=== PATIENT | female | born 1965 | race Caucasian/White ===

== ENCOUNTER 2017-01-16 11:47 | Emergency (ER) | payer OTHER ==
[2017-01-16] MEDS ORDERED: AMOXICILLIN/POTASSIUM CLAV 875MG/125MG TABLET PO ONE (12:01)
--- NOTE | 2017-01-16 12:08 | Emergency Department Record ---
History of Present Illness - General Chief Complaint: Animal Bite Stated Complaint: DOG BITE Time Seen by Provider: 01/16/17 12:01 Source: Patient, Family Mode of Arrival: Ambulatory Limitations: No limitations - History of Present Illness Initial Comments: 51 yo male presents with dog bite to her right elbow. Her [place] sharma was fighting with another dog. She was the dogs when her dog bit her arm. Her dog is healthy, up to date on shots. She has small lacerations to the elbow. No loss of range of motion, no weakness, numbness or tingling. Her tetanus is up to date. Complaint: Animal bite Onset/Timin -: Minutes(s) Right: Elbow Animal: Dog Description: Household pet Mechanism: Bite Severity scale (1-10): 8 Context: Animals fighting Associated Symptoms: Bleeding Treatments Prior to Arrival: Wound dressing(s) - Related Data Patient Tetanus UTD (within 5 yrs): Yes Previous Rx's Medication Instructions Recorded Amoxicillin/Potassium Clav 1 tab PO BID #14 tab 01/16/17 [Augmentin 875-125 Tablet] Allergies Allergy/AdvReac Type Severity Reaction Status Date / Time hydrocortisone Allergy HIVES Verified 01/16/17 11:55 methylisothiazolinone Allergy HIVES Verified 01/16/17 11:55 Sulfa (Sulfonamide Allergy RASH Verified 01/16/17 11:55 Antibiotics) Travel Screening - Travel/Exposure Within Last 30 Days Have you traveled within the last 30 days?: No - Travel/Exposure Within Last Year Have you traveled outside the [place] in the last year?: No - Additonal Travel Details Have you been exposed to anyone with a communicable illness?: No - Travel Symptoms Symptom Screening: None Review of Systems Constitutional: Denies: Chills, Fever, Malaise, Weakness Eyes: Denies: Eye discharge ENT: Denies: Congestion, Throat pain Respiratory: Denies: Cough Cardiovascular: Denies: Chest pain, Palpitations, Syncope Endocrine: Denies: Fatigue Gastrointestinal: Denies: Abdominal pain, Diarrhea, Nausea, Vomiting Genitourinary: Denies: Dysuria, Urgency Musculoskeletal: Reports: Myalgia. Denies: Arthralgia, Back pain, Joint swelling, Neck pain Skin: Reports: Other. Denies: Change in color Neurological: Denies: Headache Psychiatric: Denies: Anxiety Hematological/Lymphatic: Denies: Blood Clots, Easy bleeding, Easy bruising, Swollen glands Past Medical History - SOCIAL HISTORY Smoking Status: Never smoker Alcohol Use: None Drug Use: None - RESPIRATORY Hx Respiratory Disorders: No - CARDIOVASCULAR Hx Cardio Disorders: No - NEURO Hx Neuro Disorders: No - GI Hx GI Disorders: No - Hx Genitourinary Disorders: No - ENDOCRINE Hx Endocrine Disorders: No - MUSCULOSKELETAL Hx Musculoskeletal Disorders: No - PSYCH Hx Psych Problems: No - HEMATOLOGY/ONCOLOGY Hx Hematology/Oncology Disorders: No Family Medical History Any Significant Family History?: No Physical Exam - General General Appearance: Alert, Oriented x3, Cooperative, No acute distress Limitations: No limitations - Head Head exam: Normal inspection - Eye Eye exam: Normal appearance, PERRL - ENT ENT exam: Normal exam Ear exam: Normal external inspection Nasal Exam: Normal inspection Mouth exam: Normal external inspection - Neck Neck exam: Normal inspection - Respiratory Respiratory exam: Normal lung sounds bilaterally. negative: Respiratory distress - Cardiovascular Cardiovascular Exam: Regular rate, Normal rhythm, Normal heart sounds Peripheral Pulses: 2+: Radial (R) - Rectal Rectal exam: Deferred - exam: Deferred - Extremities Extremities exam: Full ROM, Normal capillary refill, Tenderness. negative: Normal inspection, Joint swelling, Pedal edema Image of Full Body: 1 - 1cm laceration distal to the elbow, superficial abrasions, mild soft tissue swelling 2 - 2 superficial abrasions no lacerations, mild soft tissue swelling - Back Back exam: Reports: Normal inspection - Neurological Neurological exam: Alert, Normal gait, Oriented X3, Reflexes normal. negative: Motor sensory deficit - Psychiatric Psychiatric exam: Normal affect, Normal mood - Skin Skin exam: Abrasion Type of lesion: Laceration Course - Reevaluation(s) Reevaluation #1: Mild soft tissue swelling, abrasions, one 1cm laceration full range of motion without pain or limitation tetanus is up to date Augmentin provided in the ED XR ordered 01/16/17 12:08 01/16/17 14:28 Reevaluation #2: The XR was read as no acute bony abnormality, no effusion, soft tissue swelling with soft tissue air (likely for the laceration) I discussed the XR findings with the patient She has mild local swelling and good ROM The wounds were copious irrigated in the ED She received antibiotics in the ED We discussed at length signs of developing infection and reasons to return to the ED We discussed home care with augmentin, cleaning and motrin as needed I advised a recheck in the ED in the next 1-2 days if any concerns or sooner if worse 01/16/17 14:00 Disposition Disposition: Discharge Clinical Impression: Dog bite of extremity Disposition: Home, Self-Care Condition: (1) Good Instructions: Animal Bite (ED) Additional Instructions: Return if pain, pus, red, swelling or any new concerns Return in the next 24 hours for a recheck if red, warm, pus or concerns Augmentin twice daily. Prescriptions: Amoxicillin/Potassium Clav [Augmentin 875-125 Tablet] 1 tab PO BID #14 tab Forms: Patient Portal Access Time of Disposition: 13:09
[2017-01-16] MEDS ORDERED: IBUPROFEN 600 MG TABLET PO ONE (12:44)
--- NOTE | 2017-01-22 14:05 | RADIOLOGY REPORT ---
EXAM: RIGHT ELBOW HISTORY: DOG BITE. TECHNIQUE: Two views of the right elbow were obtained. Comparison: None. Encounter: Initial. FINDINGS: Extensive soft tissue swelling with soft tissue gas along the lateral aspect of the distal upper arm and elbow. No acute underlying osseous abnormality. No radiopaque foreign body. IMPRESSION: SOFT TISSUE INJURY WITH SOFT TISSUE GAS. NO ACUTE OSSEOUS ABNORMALITY. JOB NUMBER: [id number] MTDD
== END 2017-01-16 13:51 | disposition home or self-care (01) ==
LOC: ER 11:47
DX: S51.051A Open bite, right elbow, initial encounter (principal); W54.0XXA Bitten by dog, initial encounter
CPT/HCPCS: 99283